=== PATIENT | female | born 1985 | race Caucasian/White ===

== ENCOUNTER 2019-04-09 11:09 | Emergency (ER) | payer OTHER ==
[~2019-04-09] VITALS: Ht 167.6 cm; Wt 127.0 kg
[2019-04-09] MEDS ORDERED: PROMETH-CODEIN 65 ML PO ×2 (13:15→13:37)
[2019-04-09] MEDS ORDERED: TAMIFLU75 MG PO ×2 (13:15→13:37)
[2019-04-09 13:44] VITALS: BP 132/60
== END 2019-04-09 13:44 | disposition home or self-care (01) ==
LOC: ER 11:09
DX: R05 Cough (principal); R50.9 Fever, unspecified; R06.02 Shortness of breath; H92.03 Otalgia, bilateral; J45.909 Unspecified asthma, uncomplicated; E03.9 Hypothyroidism, unspecified; Z86.2 Personal history of diseases of the blood and blood-forming organs and certain disorders involving the immune mechanism; Z88.1 Allergy status to other antibiotic agents; Z88.0 Allergy status to penicillin; Z88.6 Allergy status to analgesic agent